=== PATIENT | female | born 1935 | race American Indian/Alaskan Native ===

== ENCOUNTER → 2018-02-10 | Outpatient (CLI) | payer OTHER ==
[~2018-02-10] MED LIST: ALEN70 PO; ASPI81EC; CALCITRATE; CONEST.625; CRUTCH USE; EZET10; HYDACE5 PO; IRBE150 PO; LEVSOD88; LOVA20; LOVA40 PO; MELO7.5 PO; OLME20; RXTRAM50 PO; TRAM50 PO; [UNRECOGNIZED DRUG - OTHER]
[2018-02-10 17:08] LABS: Percent Saturation 61.5 % (15.0-50.0)
== END | disposition home or self-care (01) ==
LOC: LAB 16:37 → LAB SHORT 16:37
PROVIDERS: Internal Medicine Hematology & Oncology
DX: E83.118 Other hemochromatosis (principal)
CPT/HCPCS: 83540; 83550

== ENCOUNTER → 2019-06-16 | Outpatient (CLI) | payer OTHER | END | disposition home or self-care (01) | LOC: LAB SHORT 16:06 → PLD 16:06 | DX: D48.5 Neoplasm of uncertain behavior of skin (principal) | CPT/HCPCS: 88305 ==

== ENCOUNTER → 2019-12-30 | Outpatient (CLI) | payer OTHER ==
[2019-12-30 15:26] LABS: Alanine Aminotransfer (ALT/SGP 39 U/L (12-78); Albumin, Blood 3.9 g/dL (3.4-5.0); Albumin/Globulin Ratio 1.2 (0.8-1.8); Alk Phos 58 U/L (50-136); Anion Gap 5 mmol/L (6-16); Aspartate Aminotrans (AST/SGOT 27 U/L (12-37); Bilirubin, Total 0.4 mg/dL (0.1-1.0); Blood Urea Nitrogen 23 mg/dL (8-24); Bun/Creatinine Ratio 27.1 (12.0-20.0); CO2, Blood 26 mmol/L (21-32); Chloride, Blood 107 mmol/L (98-108); Creatinine, Blood 0.85 mg/dL (0.40-1.00); Globulin, Blood 3.2 g/dL (2.2-4.0); Glomerular Filtration Rate >60 (60-); Glucose, Blood 104 mg/dL (70-99); Potassium, Blood 4.6 mmol/L (3.5-5.5); Sodium, Blood 138 mmol/L (136-145); Total Protein, Blood 7.1 g/dL (6.4-8.2)
== END | disposition home or self-care (01) ==
LOC: LAB 14:03 → LAB SHORT 14:03
PROVIDERS: Internal Medicine Hematology & Oncology
DX: D64.9 Anemia, unspecified (principal); E83.118 Other hemochromatosis
CPT/HCPCS: 80053

== ENCOUNTER 2021-12-18 10:16 | Day surgery (SDC) | payer OTHER ==
[~2021-12-18] VITALS: Ht 157.5 cm; Wt 62.9 kg
[2021-12-18] MEDS ORDERED: FISH OIL 1,2001 EAC7 PO (11:08)
== END 2021-12-18 12:10 | disposition home or self-care (01) ==
LOC: ORSCSDS 10:16
PROVIDERS: Internal Medicine Gastroenterology
PROC: 0DJD8ZZ Inspection of Lower Intestinal Tract, Via Natural or Artificial Opening Endoscopic (ICD-10-PCS; principal; 2021-12-18 11:15)
DX: Z12.11 Encounter for screening for malignant neoplasm of colon (principal); Z86.010 Personal history of colon polyps; K57.30 Diverticulosis of large intestine without perforation or abscess without bleeding; I10 Essential (primary) hypertension; Z79.82 Long term (current) use of aspirin; Z79.899 Other long term (current) drug therapy
CPT/HCPCS: J2704; J7120

== ENCOUNTER 2024-03-22 05:05 | Emergency (ER) | payer OTHER ==
[~2024-03-22] VITALS: Ht 160 cm; Wt 64.9 kg
[~2024-03-22 05:05] MED LIST changes: +FISH OIL 1,2001 EAC7 PO
[2024-03-22 06:48] LABS: BASOPHILS ABSOLUTE AUTO 0.03 K/mm3 (0.00-0.23); BASOPHILS PERCENT AUTO 0 % (0-2); EOSINOPHILS ABSOLUTE AUTO 0.03 K/mm3 (0.00-0.68); EOSINOPHILS PERCENT AUTO 0 % (0-6); Hematocrit 30.3 % (33.0-51.0); Hemoglobin 10.3 g/dL (11.5-16.0); IMMATURE GRAN ABSOLUTE AUTO 0.03 K/mm3 (0.00-0.10); IMMATURE GRAN PERCENT AUTO 0 % (0-1); LYMPHOCYTES ABSOLUTE AUTO 0.89 K/mm3 (0.84-5.20); LYMPHOCYTES PERCENT AUTO 9 % (21-46); MONOCYTES ABSOLUTE AUTO 1.08 K/mm3 (0.16-1.47); MONOCYTES PERCENT AUTO 11 % (4-13); Mean Corpuscular HGB 31.8 pg (26.0-34.0); Mean Corpuscular Volume 94 fL (80-100); Mean Platelet Volume 9.9 fL (9.1-12.4); NEUTROPHILS ABSOLUTE AUTO 7.39 K/mm3 (1.96-9.15); NEUTROPHILS PERCENT AUTO 78 % (41-73); Platelet Count 228 K/mm3 (150-400); RDW Coefficient Variation 12.5 % (11.7-14.2); RDW Standard Deviation 43.4 fL (35.1-46.3); Red Blood Cell Count 3.24 M/mm3 (3.80-5.20); White Blood Cell Count 9.45 K/mm3 (4.00-11.30)
[2024-03-22 07:35] LABS: Albumin, Blood 3.7 g/dL (3.4-5.0); Bilirubin, Total 0.6 mg/dL (0.1-1.0); Bun/Creatinine Ratio 26.1 (12.0-20.0); Calcium, Blood 9.1 mg/dL (8.5-10.1); Creatinine, Blood 0.77 mg/dL (0.40-1.00); Globulin, Blood 3.8 g/dL (2.2-4.0); Potassium, Blood 3.7 mmol/L (3.5-5.5); Total Protein, Blood 7.5 g/dL (6.4-8.2); Uric Acid, Blood 5.6 mg/dL (2.6-6.0)
[2024-03-22 08:09] VITALS: BP 150/74
== END 2024-03-22 08:15 | disposition home or self-care (01) ==
LOC: ER 05:05
PROVIDERS: Emergency Medicine
DX: M10.9 Gout, unspecified (principal); E78.5 Hyperlipidemia, unspecified; E03.9 Hypothyroidism, unspecified; Z88.8 Allergy status to other drugs, medicaments and biological substances
CPT/HCPCS: 29125; 73100; 80053; 84550; 85025; 99283-25

== ENCOUNTER 2025-02-25 12:27 | Inpatient (IN) | payer OTHER ==
[~2025-02-25] VITALS: Ht 160 cm; Wt 62.1 kg
[2025-02-25 13:19] LABS: BASOPHILS ABSOLUTE AUTO 0.05 K/mm3 (0.00-0.23); BASOPHILS PERCENT AUTO 0 % (0-2); EOSINOPHILS ABSOLUTE AUTO 0.08 K/mm3 (0.00-0.68); EOSINOPHILS PERCENT AUTO 1 % (0-6); Hematocrit 29.0 % (33.0-51.0); Hemoglobin 9.8 g/dL (11.5-16.0); IMMATURE GRAN ABSOLUTE AUTO 0.07 K/mm3 (0.00-0.10); IMMATURE GRAN PERCENT AUTO 1 % (0-1); LYMPHOCYTES ABSOLUTE AUTO 0.61 K/mm3 (0.84-5.20); LYMPHOCYTES PERCENT AUTO 5 % (21-46); MONOCYTES ABSOLUTE AUTO 0.66 K/mm3 (0.16-1.47); MONOCYTES PERCENT AUTO 6 % (4-13); Mean Corpuscular HGB Conc 33.8 g/dL (31.5-36.5); Mean Corpuscular Volume 94 fL (80-100); NEUTROPHILS ABSOLUTE AUTO 9.76 K/mm3 (1.96-9.15); NEUTROPHILS PERCENT AUTO 87 % (41-73); NRBC ABSOLUTE 0.00 K/mm3 (0.00-0.02); NRBC Auto 0.0 /100 WBC (0.0-0.2); Platelet Count 249 K/mm3 (150-400); RDW Coefficient Variation 12.3 % (11.7-14.2); RDW Standard Deviation 42.4 fL (35.1-46.3)
[2025-02-25 14:00] LABS: Alanine Aminotransfer (ALT/SGP 36.0 U/L (12-78); Albumin, Blood 3.7 g/dL (3.4-5.0); Albumin/Globulin Ratio 1.2 (0.8-1.8); Anion Gap 9.0 mmol/L (3-11); Aspartate Aminotrans (AST/SGOT 28.0 U/L (12-37); Bilirubin, Total 0.3 mg/dL (0.1-1.0); Blood Urea Nitrogen 26.0 mg/dL (8-24); CO2, Blood 24.0 mmol/L (21-32); Calcium, Blood 8.9 mg/dL (8.5-10.1); Chloride, Blood 108.0 mmol/L (98-108); Creatinine, Blood 0.74 mg/dL (0.40-1.00); Globulin, Blood 3.2 g/dL (2.2-4.0); Glucose, Blood 117.0 mg/dL (70-99); Potassium, Blood 4.0 mmol/L (3.5-5.5); Sodium, Blood 137.0 mmol/L (136-145); Total Protein, Blood 6.9 g/dL (6.4-8.2)
[2025-02-25] MEDS ORDERED: FLU VACC TS2025(65UP)/MF59C/PF 45 MCG/0.5 ML SYRINGE IM SCH (14:40)
[2025-02-25] MEDS ORDERED: NS 1,000 ML IV SCH (15:00)
--- NOTE | 2025-02-25 16:56 | NUR ---
Pt. is awake in bed. Spouse is at bedside and welcomes my visit. Family is known to this title investigator from the community. Facilitated a life review and a faamily update. COnsidered matters of deb and belief. Pt. diaplyed evidence of trust and peace. Prayed with the Pt. and spouse. Both verbalized gratitude for the spiritual care visit and welcomed this title investigator to visit again tomorrow.
[2025-02-25] MEDS ORDERED: FentaNYL Citrate 50 MCG/ML 2 ML Injection IV PRN (18:00)
[2025-02-25 22:20] VITALS: BP 154/76
[2025-02-26] VITALS (16 sets, daily range): BP systolic 115–149; BP diastolic 49–79
[2025-02-26 05:12] LABS: BASOPHILS ABSOLUTE AUTO 0.01 K/mm3 (0.00-0.23); BASOPHILS PERCENT AUTO 0 % (0-2); EOSINOPHILS ABSOLUTE AUTO 0.00 K/mm3 (0.00-0.68); EOSINOPHILS PERCENT AUTO 0 % (0-6); Hematocrit 23.4 % (33.0-51.0); Hemoglobin 8.1 g/dL (11.5-16.0); IMMATURE GRAN ABSOLUTE AUTO 0.03 K/mm3 (0.00-0.10); IMMATURE GRAN PERCENT AUTO 0 % (0-1); LYMPHOCYTES ABSOLUTE AUTO 0.62 K/mm3 (0.84-5.20); LYMPHOCYTES PERCENT AUTO 7 % (21-46); MONOCYTES ABSOLUTE AUTO 0.70 K/mm3 (0.16-1.47); MONOCYTES PERCENT AUTO 7 % (4-13); Mean Corpuscular HGB Conc 34.6 g/dL (31.5-36.5); Mean Corpuscular Volume 93 fL (80-100); NEUTROPHILS ABSOLUTE AUTO 8.24 K/mm3 (1.96-9.15); NEUTROPHILS PERCENT AUTO 86 % (41-73); NRBC ABSOLUTE 0.00 K/mm3 (0.00-0.02); NRBC Auto 0.0 /100 WBC (0.0-0.2); Platelet Count 207 K/mm3 (150-400); RDW Coefficient Variation 12.3 % (11.7-14.2); RDW Standard Deviation 42.8 fL (35.1-46.3)
[2025-02-26 05:36] LABS: Anion Gap 10.0 mmol/L (3-11); Blood Urea Nitrogen 28.0 mg/dL (8-24); CO2, Blood 25.0 mmol/L (21-32); Calcium, Blood 8.1 mg/dL (8.5-10.1); Chloride, Blood 106.0 mmol/L (98-108); Creatinine, Blood 0.71 mg/dL (0.40-1.00); Glucose, Blood 154.0 mg/dL (70-99); Potassium, Blood 3.9 mmol/L (3.5-5.5); Sodium, Blood 137.0 mmol/L (136-145)
--- NOTE | 2025-02-26 06:47 | NUR ---
SHIFT SUMMARY PT ADMITTED TO FLOOR APPROX 2153 FROM ER. ADMITTED FOR R. FEMORAL FX. PT NPO IN PREPARATION OF SURGICAL CONSULT THIS AM. SHE IS NOT IN PAIN UNLESS SHE IS MOVING AROUND. MEDICATED X2 FOR PAIN. PT HAS BEEN PLEASANT AND COOPERATIVE WITH CARE.
--- NOTE | 2025-02-26 10:35 | NUR ---
"Spiritual Care | Pt. Request Pt. is awake in bed and welcomes my visit. Pt. is pleasant. Spouse and Pts. daughter are present. Pt. and family are known to this chaplani from the community so rapport is quickly re-established. Pt. displayed evidence of patiently awaiting a diagnosis and a plan of care. Seek to normalize the Pt. experience. Prayed with the Pt. Pt. and family verbalized gratitude fo rthe spiritual care visit."
[2025-02-26] MEDS ORDERED: Magnesium Hydroxide Conc 10 ML UDC PO PRN (11:00)
--- NOTE | 2025-02-26 12:25 | NUR ---
TRANSFER PT TRANSFERED TO ROOM 214 VIA BED. BELONGINGS SENT WITH FAMILY.
[2025-02-26 14:30] LABS: Hematocrit 23.9 % (33.0-51.0); Hemoglobin 8.2 g/dL (11.5-16.0)
--- NOTE | 2025-02-26 15:00 | NUR ---
PATIENT TO OR @ [id number]
--- NOTE | 2025-02-26 15:01 | NUR ---
History, Chart, Medications and Allergies reviewed before start of procedure. Patient confirms NPO status and agrees with scheduled surgery. TRANSPORTED TO [facility] VIA BED. FAMILY AT BEDSIDE. AGREES WITH PLANNED SURGERY.
[2025-02-26] MEDS ORDERED: CeFAZolin Sodium 2,000 MG in NS 100 ML IV SCH ×2 (15:05→23:30)
[2025-02-26 15:21] LABS: Ferritin, Serum 1022.0 ng/mL (8-252); Total Iron Binding Capacity 230.0 ug/dL (250-450)
[2025-02-26] MEDS ORDERED: Bupivacaine 0.5% HCl 5 MG/ML 30MLVIAL ONE (15:23)
[2025-02-26] MEDS ORDERED: Tranexamic Acid 100 ML IV SCH (15:25)
[2025-02-26] MEDS ORDERED: FentaNYL Citrate 50 MCG/ML 2 ML Injection ONE ×2 (15:35→16:08)
--- NOTE | 2025-02-26 18:16 | NUR ---
POST-OP PATIENT IS AOX4, SOMEWHAT DROWSY. 3 AQUACELS TO RIGHT LEG DIME SIZED S/S DRNG. PATIENT ON 4L NC, SATS REMAIN ABOVE 90%. RESTING AT THIS TIME.VSS. FAMILY IN ROOM. CALL LIGHT IN REACH.
[2025-02-26] MEDS ORDERED: Ondansetron HCl 2 MG / ML 2ML Vial IV PRN (19:10)
[2025-02-26 23:08] LABS: Hematocrit 19.8 % (33.0-51.0); Hemoglobin 6.7 g/dL (11.5-16.0)
[2025-02-27] VITALS (9 sets, daily range): BP systolic 111–144; BP diastolic 51–67
[2025-02-27] MEDS ORDERED: NS 500 ML IV SCH (03:25)
--- NOTE | 2025-02-27 06:08 | NUR ---
SHIFT SUMMARY LAURA WAS ALERT AND ORIENTED X 2-3 ON ASSESSMENT CONFUSED T/O SHIFT, WITH IMPROVEMENT TOWARDS END OF SHIFT. PT INSCISIONS C/D/I, PAIN WELL MANAGED W/O PAIN MEDS TONIGHT. HGB NOTED TO BE <7, HOSPITALIST CONTACTED, BLOOD ORDERED, CURRENTLY TRANSFUSING. PT SENSATION AND CIRCULATION TO BLES INTACT. DENIES SOB, OR CHEST PAIN. PT NAUSEOUS AND VOMITING BRIEFLY AT START OF SHIFT. RESOLVED WITH ZOFRAN. NO OTHER EVENTS OR NOTED CHANGES TO PT CONDITION.
[2025-02-27] MEDS ORDERED: Enoxaparin 40 MG/0.4 ML SYR SC SCH (09:00)
[2025-02-27 11:06] LABS: BASOPHILS ABSOLUTE AUTO 0.02 K/mm3 (0.00-0.23); BASOPHILS PERCENT AUTO 0 % (0-2); EOSINOPHILS ABSOLUTE AUTO 0.00 K/mm3 (0.00-0.68); EOSINOPHILS PERCENT AUTO 0 % (0-6); Hematocrit 23.0 % (33.0-51.0); Hemoglobin 7.8 g/dL (11.5-16.0); IMMATURE GRAN ABSOLUTE AUTO 0.06 K/mm3 (0.00-0.10); IMMATURE GRAN PERCENT AUTO 1 % (0-1); LYMPHOCYTES ABSOLUTE AUTO 1.07 K/mm3 (0.84-5.20); LYMPHOCYTES PERCENT AUTO 9 % (21-46); MONOCYTES ABSOLUTE AUTO 1.27 K/mm3 (0.16-1.47); MONOCYTES PERCENT AUTO 11 % (4-13); Mean Corpuscular HGB Conc 33.9 g/dL (31.5-36.5); Mean Corpuscular Volume 94 fL (80-100); NEUTROPHILS ABSOLUTE AUTO 9.25 K/mm3 (1.96-9.15); NEUTROPHILS PERCENT AUTO 79 % (41-73); NRBC ABSOLUTE 0.00 K/mm3 (0.00-0.02); NRBC Auto 0.0 /100 WBC (0.0-0.2); Platelet Count 204 K/mm3 (150-400); RDW Coefficient Variation 13.5 % (11.7-14.2); RDW Standard Deviation 46.0 fL (35.1-46.3)
[2025-02-27 11:16] LABS: Anion Gap 10.0 mmol/L (3-11); Blood Urea Nitrogen 31.0 mg/dL (8-24); CO2, Blood 24.0 mmol/L (21-32); Calcium, Blood 7.7 mg/dL (8.5-10.1); Chloride, Blood 103.0 mmol/L (98-108); Creatinine, Blood 0.82 mg/dL (0.40-1.00); Glucose, Blood 178.0 mg/dL (70-99); Potassium, Blood 3.5 mmol/L (3.5-5.5); Sodium, Blood 133.0 mmol/L (136-145)
--- NOTE | 2025-02-27 14:05 | NUR ---
SHIFT SUMMARY/TRANSFER OF CARE HAS BEEN PLEASANT & UPBEAT. DEEP BREATHING WELL. R HIP SLIGHTLY SWOLLEN. WAITING TO WORK w/ THERAPY. PAIN CONTROLLED w/ TYLENOL.
[2025-02-27 17:18] LABS: Hematocrit 23.0 % (33.0-51.0); Hemoglobin 7.9 g/dL (11.5-16.0)
[2025-02-28 03:49] VITALS: BP 148/69
[2025-02-28 04:02] LABS: BASOPHILS ABSOLUTE AUTO 0.04 K/mm3 (0.00-0.23); BASOPHILS PERCENT AUTO 0 % (0-2); EOSINOPHILS ABSOLUTE AUTO 0.02 K/mm3 (0.00-0.68); EOSINOPHILS PERCENT AUTO 0 % (0-6); Hematocrit 21.5 % (33.0-51.0); Hemoglobin 7.3 g/dL (11.5-16.0); IMMATURE GRAN ABSOLUTE AUTO 0.03 K/mm3 (0.00-0.10); IMMATURE GRAN PERCENT AUTO 0 % (0-1); LYMPHOCYTES ABSOLUTE AUTO 1.05 K/mm3 (0.84-5.20); LYMPHOCYTES PERCENT AUTO 11 % (21-46); MONOCYTES ABSOLUTE AUTO 1.24 K/mm3 (0.16-1.47); MONOCYTES PERCENT AUTO 13 % (4-13); Mean Corpuscular HGB Conc 34.0 g/dL (31.5-36.5); Mean Corpuscular Volume 92 fL (80-100); NEUTROPHILS ABSOLUTE AUTO 6.98 K/mm3 (1.96-9.15); NEUTROPHILS PERCENT AUTO 75 % (41-73); NRBC ABSOLUTE 0.00 K/mm3 (0.00-0.02); NRBC Auto 0.0 /100 WBC (0.0-0.2); Platelet Count 184 K/mm3 (150-400); RDW Coefficient Variation 13.8 % (11.7-14.2); RDW Standard Deviation 46.8 fL (35.1-46.3)
--- NOTE | 2025-02-28 04:26 | NUR ---
SHIFT SUMMARY NO ACUTE EVENTS OVERNIGHT. PT WORKING ON RIGHT LEG EXERCISES THAT PT GAVE HER AT THE BEGINNING OF SHIFT. PT SALCIDO DRAINING CLEAR, YELLOW URINE. PT REQUESTED ONE PO PAIN MEDICATION NEAR THE BEGINNING OF SHIFT. PT REPORTS PAIN RELIEF AFTER ADMINISTRATION.
[2025-02-28 04:28] LABS: Anion Gap 6.0 mmol/L (3-11); Blood Urea Nitrogen 28.0 mg/dL (8-24); CO2, Blood 27.0 mmol/L (21-32); Calcium, Blood 8.2 mg/dL (8.5-10.1); Chloride, Blood 106.0 mmol/L (98-108); Creatinine, Blood 0.78 mg/dL (0.40-1.00); Glucose, Blood 120.0 mg/dL (70-99); Potassium, Blood 4.0 mmol/L (3.5-5.5); Sodium, Blood 135.0 mmol/L (136-145)
[2025-02-28 07:27] VITALS: BP 144/67
[2025-02-28 15:06] VITALS: BP 149/56
--- NOTE | 2025-02-28 16:42 | NUR ---
SHIFT SUMMARY ADMITTED ON 02/25 FOR R FEMORAL FRACTURE FOLLOWING FALL. NO ACUTE CHANGES THIS SHIFT. A&O x4, VSS, HRR, LUNGS CLEAR. TOLERATING REGULAR DIET WELL. R HIP w/AQUACEL DRESSINGS, C/D/I. WORKED w/THERAPY TODAY, ABLE TO STAND & PIVOT TO CHAIR. VOIDING SUCCESSFULLY, USES BEDSIDE COMMODE. CT PE STUDY COMPLETED THIS AFTERNOON. PAIN CONTROLLED WELL PER EMAR. CURRENTLY RESTING IN BED w/FAMILY AT BEDSIDE. CALL LIGHT WITHIN REACH.
[2025-02-28 19:45] VITALS: BP 107/69
[2025-03-01 04:12] LABS: BASOPHILS ABSOLUTE AUTO 0.03 K/mm3 (0.00-0.23); BASOPHILS PERCENT AUTO 0 % (0-2); EOSINOPHILS ABSOLUTE AUTO 0.05 K/mm3 (0.00-0.68); EOSINOPHILS PERCENT AUTO 1 % (0-6); Hematocrit 21.9 % (33.0-51.0); Hemoglobin 7.3 g/dL (11.5-16.0); IMMATURE GRAN ABSOLUTE AUTO 0.03 K/mm3 (0.00-0.10); IMMATURE GRAN PERCENT AUTO 0 % (0-1); LYMPHOCYTES ABSOLUTE AUTO 1.13 K/mm3 (0.84-5.20); LYMPHOCYTES PERCENT AUTO 14 % (21-46); MONOCYTES ABSOLUTE AUTO 1.01 K/mm3 (0.16-1.47); MONOCYTES PERCENT AUTO 12 % (4-13); Mean Corpuscular HGB Conc 33.3 g/dL (31.5-36.5); Mean Corpuscular Volume 95 fL (80-100); NEUTROPHILS ABSOLUTE AUTO 5.98 K/mm3 (1.96-9.15); NEUTROPHILS PERCENT AUTO 73 % (41-73); NRBC ABSOLUTE 0.00 K/mm3 (0.00-0.02); NRBC Auto 0.0 /100 WBC (0.0-0.2); Platelet Count 212 K/mm3 (150-400); RDW Coefficient Variation 13.4 % (11.7-14.2); RDW Standard Deviation 46.0 fL (35.1-46.3)
[2025-03-01 04:34] LABS: Anion Gap 9.0 mmol/L (3-11); Blood Urea Nitrogen 32.0 mg/dL (8-24); CO2, Blood 24.0 mmol/L (21-32); Calcium, Blood 8.0 mg/dL (8.5-10.1); Chloride, Blood 104.0 mmol/L (98-108); Creatinine, Blood 0.81 mg/dL (0.40-1.00); Glucose, Blood 117.0 mg/dL (70-99); Potassium, Blood 4.0 mmol/L (3.5-5.5); Sodium, Blood 133.0 mmol/L (136-145)
[2025-03-01 04:58] VITALS: BP 132/59
--- NOTE | 2025-03-01 06:24 | NUR ---
SHIFT SUMMARY POD 3 R HIP FIXATION. AQUACEL DRESSING X2 C/D/I WITH SHADOWING. PAIN MANAGED WELL PER EMAR. NO ACUTE CHANGES THIS SHIFT. VSS. PLAN TO DISCHARGE TO SNF. PT AMBULATING TO RESTROOM WITH 1 PERSON ASSIST AND FWW. PT RESTING IN BED, RESPIRATIONS EVEN AND UNLARBORED, NO DISTRESS NOTED. CALL LIGHT WITHIN REACH.
[2025-03-01 07:04] VITALS: BP 129/63
[2025-03-01] MEDS ORDERED: Polyethylene Glycol 3350 17 gm PO SCH (12:00)
[2025-03-01 14:14] VITALS: BP 133/70
--- NOTE | 2025-03-01 17:03 | NUR ---
SHIFT SUMMARY ADMITTED ON 02/25 R FEMORAL FRACTURE. POD 2 R DUYEN. A&O x4, VSS, HRR, LUNGS CLEAR. R HIP w/2 AQUACEL DRESSINGS, SMALL AMOUNT OF SHADOWING. 1 PERSON ASSIST TO BEDSIDE COMMODE. WORKED w/THERAPY, AMBULATED IN ROOM. UP IN CHAIR TODAY. PAIN CONTROLLED PER EMAR. TOLERATING FOOD & FLUIDS WELL. PLAN TO DC TO SNF TOMORROW. CURRENTLY RESTING IN BED w/FAMILY AT BEDSIDE. CALL LIGHT WITHIN REACH.
[2025-03-01 19:40] VITALS: BP 130/61
[2025-03-01] MEDS ORDERED: Lactobacil 2-S.Thermo-Bifido 1 1 Cap PO SCH (21:00)
[2025-03-02 03:43] VITALS: BP 141/59
--- NOTE | 2025-03-02 04:27 | NUR ---
SHIFT SUMMARY POD 4 R HIP FIXATION. A&O X4. VSS. AQUACEL DRESSING X2 C/D/I WITH SMALL AMOUNT OF SHADOWING. PAIN MANAGED WELL PER EMAR. 1 PERSON ASSIST TO BEDSIDE COMMODE. PLAN TO DISCHARGE TO SNF TODAY. PT RESTING IN BED, RESPIRATION EVEN AND UNLABORED, NO DISTRESS NOTED. CALL LIGHT WITHIN REACH.
[2025-03-02 05:12] LABS: BASOPHILS ABSOLUTE AUTO 0.02 K/mm3 (0.00-0.23); BASOPHILS PERCENT AUTO 0 % (0-2); EOSINOPHILS ABSOLUTE AUTO 0.05 K/mm3 (0.00-0.68); EOSINOPHILS PERCENT AUTO 1 % (0-6); Hematocrit 22.3 % (33.0-51.0); Hemoglobin 7.6 g/dL (11.5-16.0); IMMATURE GRAN ABSOLUTE AUTO 0.06 K/mm3 (0.00-0.10); IMMATURE GRAN PERCENT AUTO 1 % (0-1); LYMPHOCYTES ABSOLUTE AUTO 0.76 K/mm3 (0.84-5.20); LYMPHOCYTES PERCENT AUTO 10 % (21-46); MONOCYTES ABSOLUTE AUTO 0.87 K/mm3 (0.16-1.47); MONOCYTES PERCENT AUTO 11 % (4-13); Mean Corpuscular HGB Conc 34.1 g/dL (31.5-36.5); Mean Corpuscular Volume 95 fL (80-100); NEUTROPHILS ABSOLUTE AUTO 6.05 K/mm3 (1.96-9.15); NEUTROPHILS PERCENT AUTO 78 % (41-73); NRBC ABSOLUTE 0.00 K/mm3 (0.00-0.02); NRBC Auto 0.0 /100 WBC (0.0-0.2); Platelet Count 267 K/mm3 (150-400); RDW Coefficient Variation 13.2 % (11.7-14.2); RDW Standard Deviation 44.9 fL (35.1-46.3)
[2025-03-02 05:30] LABS: Anion Gap 9.0 mmol/L (3-11); Blood Urea Nitrogen 30.0 mg/dL (8-24); CO2, Blood 25.0 mmol/L (21-32); Calcium, Blood 8.3 mg/dL (8.5-10.1); Chloride, Blood 104.0 mmol/L (98-108); Creatinine, Blood 0.81 mg/dL (0.40-1.00); Glucose, Blood 122.0 mg/dL (70-99); Potassium, Blood 4.2 mmol/L (3.5-5.5); Sodium, Blood 134.0 mmol/L (136-145)
[2025-03-02 07:19] VITALS: BP 136/68
[2025-03-02] MEDS ORDERED: Polyethylene Glycol 3350 17 gm PO PRN (11:10)
--- NOTE | 2025-03-02 11:38 | NUR ---
Pt. is awake and sitting upin a chair when she welcomes my visit. Pt. is pleasant. Pts. spouse is at bediside resting in a corner chair for the early part of our visit. Facilitated an update. Pt. verbalized the past weekend and commended the wonderful staff for their care. Listen with interest and empathy. Considered matters of family, deb and belief Prayed with Pt. Pt. displayed evidence of be being encouraged. Spouse woke up afterwards, and we were reminiscing together, and Dr. Churchill came to bedside. The family verbalized gratitude for the spiritual care visit.
[2025-03-02 14:48] VITALS: BP 136/65
--- NOTE | 2025-03-02 17:46 | NUR ---
SHIFT SUMMARY PT UP TO CHAIR. ABLE TO WORK WITH THERAPY SUCCESSFULLY. PT TAKING TYLENOL ONLY FOR PAIN. PLAN FOR REHAB IN AM?
[2025-03-02 19:48] VITALS: BP 134/62
--- NOTE | 2025-03-03 04:13 | NUR ---
SHIFT SUMMARY POD 5 R HIP FIXATION. A&O X4. VSS. PAIN MANAGED WELL PER EMAR. AQUACEL DRESSING X2 RIGHT HIP C/D/I WITH SMALL AMOUNT OF SHADOWING. AQUACEL ON LATERAL R KNEE LIFTING WITH MODERATE SHADOWING. DRESSING REMOVED, SITE CLEANED WITH NS, CLEAN DRESSING APPLIED TO SITE. 1 PERSON ASSIST TO BEDSIDE COMMODE UTILIZING FWW AND GAIT BELT. PT HAD ONE BM THIS SHIFT. PT RESTING IN BED, RESPIRATIONS EVEN AND UNLABORED, NO DISTRESS NOTED. CALL LIGHT WITHIN REACH.
[2025-03-03 04:29] VITALS: BP 133/72
[2025-03-03 07:32] VITALS: BP 136/67
[2025-03-03 10:51] LABS: Hematocrit 23.3 % (33.0-51.0); Hemoglobin 7.9 g/dL (11.5-16.0)
--- NOTE | 2025-03-03 15:29 | NUR ---
ATTEMPTED TWICE TO CALL REPORT TO [facility] FIRST ATTEMPT WENT TO [employer] 2ND ATTEMPT GAVE NAME AND CALL BACK INFO SO THEIR RN MAY CALL BACK FOR REPORT.
[2025-03-03 15:32] VITALS: BP 133/68
--- NOTE | 2025-03-03 15:38 | NUR ---
REPORT GIVEN TO SHERIF AT [facility]
--- NOTE | 2025-03-03 16:09 | NUR ---
Pt. is awake and dressed for discharge when I enter the room. Pt. is pleasant. Pt. verbalizes that she is awaiting discharge to a local rehab. Seek normalize the Pt. experience. Facilitated lengthy life review as the Pt. is known to this loan processing supervisor from the community. Pt. displayed evidence of confidence and hope. Pryaed with the Pt. Pt. verbalized gratitude for the spiritual care support.
--- NOTE | 2025-03-03 17:14 | NUR ---
PT LEFT UNIT IN WC W/POSSESSIONS. TRANSPORT HAD TRANSFER PACKET IN HAND.
== END 2025-03-03 16:52 | DRG 481 ==
LOC: ER 12:27 → MEDS 14:36 → SURS 14:36 → ERHOLD 14:36 → MEDS 21:57 → SURS 02-26 12:05
PROVIDERS: Internal Medicine; Physician Assistant; ADMIT Student in an Organized Health Care Education/Training Program
PROC: 0QS636Z Reposition Right Upper Femur with Intramedullary Internal Fixation Device, Percutaneous Approach (ICD-10-PCS; principal; 2025-02-25)
PROC: 3E03329 Introduction of Other Anti-infective into Peripheral Vein, Percutaneous Approach (ICD-10-PCS; 2025-02-25)
PROC: 30233N1 Transfusion of Nonautologous Red Blood Cells into Peripheral Vein, Percutaneous Approach (ICD-10-PCS; 2025-02-26)
DX: S72.21XA Displaced subtrochanteric fracture of right femur, initial encounter for closed fracture (principal); D62 Acute posthemorrhagic anemia; M81.0 Age-related osteoporosis without current pathological fracture; E03.9 Hypothyroidism, unspecified; D63.8 Anemia in other chronic diseases classified elsewhere; I10 Essential (primary) hypertension; E78.5 Hyperlipidemia, unspecified; Z88.8 Allergy status to other drugs, medicaments and biological substances; Z79.82 Long term (current) use of aspirin; Z79.890 Hormone replacement therapy; Z79.899 Other long term (current) drug therapy; Z90.710 Acquired absence of both cervix and uterus; Z98.890 Other specified postprocedural states; Z86.73 Personal history of transient ischemic attack (TIA), and cerebral infarction without residual deficits; W08.XXXA Fall from other furniture, initial encounter
CPT/HCPCS: 36415; 36430; 70450; 71046; 71260; 73502; 73552; 73630; 80048; 80053; 82607; 82728; 82746; 83540; 83550; 85014; 85018; 85025; 86850; 86900; 86901; 86923; 93005; 93010; 97110; 97161; 97165; 97530; 97535; 99285-25; A6590; A9270; C1713; C1769; J0690; J1650; J2405; J2704; J3010; J7030; J7120; P9016; Q9967